=== PATIENT | female | born 1985 | race Hispanic/Latino ===

== ENCOUNTER 2020-02-20 05:49 | Observation (INO) | payer OTHER ==
[2020-02-14 11:24] LABS: BASOPHILS % (AUTO) 0.7 % (0.0-5.0); EOSINOPHILS % (AUTO) 1.7 % (0.0-8.0); HEMATOCRIT 38.7 % (36-48); LYMPHOCYTES % (AUTO) 29.4 % (21.0-51.0); MEAN CORPUSCULAR HEMOGLOBIN 26.6 pg (27.0-33.0); MEAN CORPUSCULAR HGB CONC 31.8 g/dL (32.0-36.0); MEAN CORPUSCULAR VOLUME 83.6 fL (79-99); MONOCYTES % (AUTO) 5.8 % (3.0-13.0); PLATELET COUNT (AUTO) 303 K/uL (130-400); RED BLOOD CELL COUNT(AUTO) 4.63 MIL/uL (4.00-5.50); RED CELL DISTRIBUTION WIDTH 13.2 % (11.0-15.5); WHITE BLOOD COUNT (AUTO) 7.5 K/uL (4.8-10.8)
[2020-02-19 09:32] VITALS: BP 128/76
[2020-02-20] VITALS (23 sets, daily range): BP systolic 103–131; BP diastolic 56–88
[~2020-02-20] VITALS: Ht 165.1 cm; Wt 114.2 kg
[~2020-02-20 05:49] MED LIST: ACETAMINOPHEN-CODEINE 300/30MG TAB PO PRN; BISACODYL 10 MG SUPP.RECT RC PRN; CEFAZOLIN SODIUM 1 GM VIAL IVP SCH; CITA40TA6 PO; DOCUSATE SODIUM 100 MG CAP PO PRN; IBUPROFEN 600 MG TABLET PO PRN; LACTATED RINGERS 1000ML 1,000 ML IV ONE; LORA-192 PO; MEPERIDINE-PF 75 MG/ML SYG IM PRN; ONDANSETRON HCL 4 MG/2 ML VIAL IVP PRN; PROMETHAZINE HCL 25 MG/ML 1ML AMPULE IM PRN; RIZA10TA41 PO; SIMETHICONE 80 MG TAB.CHEW PO PRN; TOPI100T37 PO; TRAZ150T79 PO; VITAMIN D PO
[2020-02-20] MEDS ORDERED: LIDOCAINE PF 2% 5ML ABBOJECT ONE (06:50)
[2020-02-20] MEDS ORDERED: SUCCINYLCHOLINE CHLORIDE 20 MG/ML 10 ML VIAL ONE ×2 (06:51→08:58)
[2020-02-20] MEDS ORDERED: ONDANSETRON HCL 4 MG/2 ML VIAL ONE (06:51)
[2020-02-20] MEDS ORDERED: NEOSTIGMINE 5MG/5ML SYR IV ONE (06:51)
[2020-02-20] MEDS ORDERED: MIDAZOLAM HCL 1 MG/ML 2ML VIAL ONE ×2 (06:51→07:19)
[2020-02-20] MEDS ORDERED: DEXAMETHASONE SOD PHOSPHATE 10MG/ML 1ML VIAL ONE (06:51)
[2020-02-20] MEDS ORDERED: GLYCOPYRROLATE 1 MG/5 ML SYRINGE ONE (06:51)
[2020-02-20] MEDS ORDERED: PROPOFOL 10 MG/ML 20ML VIAL IV ONE (06:51)
[2020-02-20] MEDS ORDERED: ROCURONIUM 10MG/1ML SYR 10 MG/ML ML ONE (06:51)
[2020-02-20] MEDS ORDERED: FENTANYL CITRATE PF 50 MCG/1 ML 2ML VIAL ONE ×3 (06:52→08:44)
[2020-02-20] MEDS ORDERED: MEPERIDINE-PF 25 MG/ML SYG ONE ×3 (06:52→09:32)
[2020-02-20] MEDS: DEXTROSE 5 %-0.45 % NACL 1,000 ML IV SCH ×2 (10:05→18:12)
[2020-02-20] MEDS ORDERED: MEPERIDINE-PF 75 MG/ML SYG IM PRN (17:45)
[2020-02-20] MEDS ORDERED: PROMETHAZINE HCL 25 MG/ML 1ML AMPULE IM PRN ×2 (17:45)
[2020-02-20] MEDS ORDERED: DEXTROSE 5 %-0.45 % NACL 1,000 ML IV PRN (17:45)
[2020-02-20] MEDS ORDERED: BISACODYL 10 MG SUPP.RECT RC PRN (17:45)
[2020-02-20] MEDS: ACETAMINOPHEN-CODEINE 300/30MG TAB PO PRN ×2 (18:12→23:42)
[2020-02-20] MEDS: DOCUSATE SODIUM 100 MG CAP PO PRN (20:51)
[2020-02-20] MEDS: SIMETHICONE 80 MG TAB.CHEW PO PRN (20:51)
[2020-02-20] MEDS: IBUPROFEN 600 MG TABLET PO PRN (20:52)
[2020-02-21] MEDS: DEXTROSE 5 %-0.45 % NACL 1,000 ML IV SCH (03:38)
[2020-02-21 03:45] VITALS: BP 112/64
[2020-02-21 04:44] LABS: HEMATOCRIT 35.4 % (36-48); MEAN CORPUSCULAR HEMOGLOBIN 26.7 pg (27.0-33.0); MEAN CORPUSCULAR HGB CONC 32.2 g/dL (32.0-36.0); MEAN CORPUSCULAR VOLUME 82.9 fL (79-99); RED BLOOD CELL COUNT(AUTO) 4.27 MIL/uL (4.00-5.50); WHITE BLOOD COUNT (AUTO) 16.4 K/uL (4.8-10.8)
[2020-02-21] MEDS: IBUPROFEN 600 MG TABLET PO PRN (05:02)
[2020-02-21 07:37] VITALS: BP 108/63
[2020-02-21] MEDS: SIMETHICONE 80 MG TAB.CHEW PO PRN (08:32)
[2020-02-21] MEDS: DOCUSATE SODIUM 100 MG CAP PO PRN (08:32)
[2020-02-21 11:29] VITALS: BP 99/54
== END 2020-02-21 14:25 | disposition home or self-care (01) ==
LOC: DAH 05:49 → INTOOBSV 05:50 → OBSVTOIN 05:50 → DAHIP 05:50 → WSH 10:05 → UNDODISOB 02-21 14:25
PROVIDERS: ADMIT Obstetrics & Gynecology; ATTEND Obstetrics & Gynecology
DX: N80.3 Endometriosis of pelvic peritoneum (principal); Z20.828 Contact with and (suspected) exposure to other viral communicable diseases; N94.6 Dysmenorrhea, unspecified; N81.5 Vaginal enterocele; G43.909 Migraine, unspecified, not intractable, without status migrainosus; F41.9 Anxiety disorder, unspecified; F32.9 Major depressive disorder, single episode, unspecified; Z79.899 Other long term (current) drug therapy
CPT/HCPCS: 36415 ×3; 57268; 58552; 84703; 85025; 85027; 86850 ×2; 86900 ×2; 86901 ×2; 96360; 96361 ×2; 96372; A4215 ×2; A4221; A4222; A4223; A4344; A4600; A4649 ×3; A4663; C1769 ×2; C9803; G0378 ×30; J0330 ×2; J0690 ×2; J1100; J2001; J2175 ×4; J2250 ×2; J2405; J2550; J2704; J2710; J3010 ×3; J3490; J7030; J7120 ×2; U0003